=== PATIENT | female | born 1955 | race Caucasian/White ===

== ENCOUNTER → 2024-12-10 18:13 | Outpatient (REF) | payer MEDICARE, SELFPAY | LOC: WDC 18:13 | DX: Z12.31 Encounter for screening mammogram for malignant neoplasm of breast (principal) | CPT/HCPCS: 77063; 77067 ==

== ENCOUNTER → 2025-01-02 11:07 | Outpatient (REF) | payer MEDICARE, SELFPAY | LOC: RAD 11:07 | DX: Z78.0 Asymptomatic menopausal state (principal) | CPT/HCPCS: 77080 ==